=== PATIENT | female | born 1960 | race Caucasian/White ===

== ENCOUNTER 2019-02-07 10:02 | Day surgery (SDC) | payer BC ==
[~2019-02-07] VITALS: Ht 154.9 cm; Wt 77.1 kg
[~2019-02-07 10:02] MED LIST: B-122500 MCG SL; Calci-Chew500 MG PO; DUOFER 28 MG TA28 MG PO; Estrogel93 GM TOP; LEVSOD100 PO; Prozac40 MG PO; Vitamin D400 UNI2 PO; [UNRECOGNIZED DRUG - OTHER] PO
== END 2019-02-07 11:58 | disposition home or self-care (01) ==
LOC: ORSCSDS 10:02
PROVIDERS: Internal Medicine Gastroenterology
PROC: 0DBP8ZX Excision of Rectum, Via Natural or Artificial Opening Endoscopic, Diagnostic (ICD-10-PCS; principal; 2019-02-07 11:15)
PROC: 0DBL8ZX Excision of Transverse Colon, Via Natural or Artificial Opening Endoscopic, Diagnostic (ICD-10-PCS; principal; 2019-02-07 11:15)
PROC: 0DBM8ZX Excision of Descending Colon, Via Natural or Artificial Opening Endoscopic, Diagnostic (ICD-10-PCS; principal; 2019-02-07 11:15)
DX: Z12.11 Encounter for screening for malignant neoplasm of colon (principal); D12.3 Benign neoplasm of transverse colon; D12.4 Benign neoplasm of descending colon; K62.1 Rectal polyp; K64.8 Other hemorrhoids; Z86.010 Personal history of colon polyps; K58.9 Irritable bowel syndrome, unspecified; Z98.84 Bariatric surgery status; E66.9 Obesity, unspecified; Z68.33 Body mass index [BMI] 33.0-33.9, adult; Z79.899 Other long term (current) drug therapy
CPT/HCPCS: 88305; J2704; J7120

== ENCOUNTER 2022-12-01 08:43 | Day surgery (SDC) | payer BC ==
[~2022-12-01] VITALS: Ht 157.5 cm; Wt 76.3 kg
[2022-12-01] MEDS ORDERED: CONEST1.25 (09:19)
[2022-12-01 10:25] VITALS: BP 128/70
== END 2022-12-01 10:32 | disposition home or self-care (01) ==
LOC: ORSCSDS 08:43
PROVIDERS: Internal Medicine Gastroenterology
PROC: 0DBP8ZX Excision of Rectum, Via Natural or Artificial Opening Endoscopic, Diagnostic (ICD-10-PCS; principal; 2022-12-01 10:00)
DX: Z12.11 Encounter for screening for malignant neoplasm of colon (principal); Z86.010 Personal history of colon polyps; K62.1 Rectal polyp; K58.1 Irritable bowel syndrome with constipation; K64.8 Other hemorrhoids; Z87.891 Personal history of nicotine dependence; Z79.899 Other long term (current) drug therapy
CPT/HCPCS: 88305; J2704; J7120